=== PATIENT | male | born 1980 | race Caucasian/White ===

== ENCOUNTER 2018-10-31 07:18 | Inpatient (IN) | payer OTHER ==
[2018-10-31] MEDS ORDERED: NACL 0.9% 3 ML SYG IV ×2 (09:30→14:30)
[2018-10-31] MEDS ORDERED: LORAZEPAM 2 MG INJ IV ×4 (09:30→15:30)
[2018-10-31] MEDS: ACETAMINOPHEN 325 MG TAB PO (09:43)
[2018-10-31] MEDS: ONDANSETRON 4 MG INJ IV ×2 (09:47→16:03)
[2018-10-31] MEDS ORDERED: ACETAMINOPHEN 325 MG TAB PO ×2 (14:30→20:30)
[2018-10-31 14:44] LABS: ADD MAN DIFF? NO
[2018-10-31 14:46] LABS: ABNORMAL IP MESSAGE 1; BASOPHILS % 1.1 % (0.0-2.0); EOSINOPHILS # 0.2 10^3/ul (0.0-0.5); EOSINOPHILS % 4.9 % (0.0-7.0); HEMATOCRIT 39.9 % (42.0-52.0); HEMOGLOBIN 13.8 g/dl (14.0-18.0); LYMPHOCYTES # 0.8 10^3/ul (0.8-2.9); MEAN CORPUSCULAR HEMOGLOBIN 30.9 pg (29.0-33.0); MEAN CORPUSCULAR HGB CONC 34.6 g/dl (32.0-37.0); MEAN CORPUSCULAR VOLUME 89.3 fl (82.0-101.0); MEAN PLATELET VOLUME 10.4 fl (7.4-10.4); MONOCYTE # 0.4 10^3/ul (0.3-0.9); MONOCYTES % 9.4 % (0.0-11.0); NEUTROPHIL # 2.4 10^3/ul (1.6-7.5); NEUTROPHILS % 63.3 % (39.0-77.0); PLATELET COUNT 74 10^3/UL (140-415); POSITIVE DIFF @See below; RED BLOOD COUNT 4.47 10^6/ul (4.70-6.10); RED CELL DISTRIBUTION WIDTH 17.4 % (11.5-14.5)
[2018-10-31 14:46] LABS: WHITE BLOOD COUNT 3.7 10^3/ul (4.8-10.8)
[2018-10-31] MEDS: DULOXETINE 30 MG CAP DR PO (15:13)
[2018-10-31] MEDS: SOD CHLORIDE 0.9% 1,000 ML IV ×2 (15:13→20:12)
[2018-10-31 15:19] LABS: ALANINE AMINOTRANSFERASE 43 IU/L (13-69); ALBUMIN 3.3 g/dl (3.3-4.9); ALBUMIN/GLOBULIN RATIO 1.26; ALKALINE PHOSPHATASE 62 IU/L (42-121); ANION GAP 6 (5-13); ASPARTATE AMINO TRANSFERASE 38 IU/L (15-46); BILIRUBIN,INDIRECT 1.7 mg/dl (0-1.1); BILIRUBIN,TOTAL 1.7 mg/dl (0.2-1.3); BLOOD UREA NITROGEN 8 mg/dl (7-20); CALCIUM 8.4 mg/dl (8.4-10.2); CARBON DIOXIDE 26 mmol/L (21-31); CHLORIDE 108 mmol/L (97-110); CREATININE 1.14 mg/dl (0.61-1.24); Estimated GFR > 60 mL/min (>60); GLUCOSE 78 mg/dl (70-220); LIPASE 288 U/L (23-300); POTASSIUM 4.3 mmol/L (3.5-5.1); SODIUM 140 mmol/L (135-144); TOTAL PROTEIN 5.9 g/dl (6.1-8.1)
[2018-10-31] MEDS: SUCRALFATE (100 MG/ML) 10ML CUP PO ×2 (16:05→21:04)
[2018-10-31] MEDS: MULTIVITAMINS 10 ML, THIAMINE 100 MG, FOLIC ACID 1 MG, MAGNESIUM SULFATE 2 GM in SOD CH... IV (17:18)
[2018-10-31] MEDS: PANTOPRAZOLE 40 MG INJ IV (17:18)
[2018-10-31] MEDS: morphine 2 MG INJ IV ×2 (17:30→22:15)
[2018-10-31] MEDS: METOCLOPRAMIDE 10 MG INJ IV (18:37)
[2018-10-31] MEDS: PROPRANOLOL 20 MG TAB PO (21:03)
[2018-10-31] MEDS: CHLORDIAZEPOXIDE 25 MG CAP PO (21:04)
[2018-11-01] MEDS: METOCLOPRAMIDE 10 MG INJ IV ×3 (01:57→12:02)
[2018-11-01] MEDS: morphine 2 MG INJ IV ×5 (02:22→21:05)
[2018-11-01] MEDS ORDERED: PANTOPRAZOLE (EC) 40 MG TAB PO (06:00)
[2018-11-01 06:02] LABS: ADD MAN DIFF? NO
[2018-11-01 06:12] LABS: WHITE BLOOD COUNT 2.8 10^3/ul (4.8-10.8)
[2018-11-01 06:12] LABS: ABNORMAL IP MESSAGE 1; BASOPHILS % 0.7 % (0.0-2.0); EOSINOPHILS # 0.2 10^3/ul (0.0-0.5); EOSINOPHILS % 6.4 % (0.0-7.0); HEMATOCRIT 40.5 % (42.0-52.0); HEMOGLOBIN 13.6 g/dl (14.0-18.0); LYMPHOCYTES # 0.7 10^3/ul (0.8-2.9); LYMPHOCYTES % 23.2 % (15.0-51.0); MEAN CORPUSCULAR HEMOGLOBIN 30.5 pg (29.0-33.0); MEAN CORPUSCULAR HGB CONC 33.6 g/dl (32.0-37.0); MEAN CORPUSCULAR VOLUME 90.8 fl (82.0-101.0); MEAN PLATELET VOLUME 10.9 fl (7.4-10.4); MONOCYTE # 0.2 10^3/ul (0.3-0.9); MONOCYTES % 8.6 % (0.0-11.0); NEUTROPHIL # 1.7 10^3/ul (1.6-7.5); NEUTROPHILS % 60.4 % (39.0-77.0); PLATELET COUNT 64 10^3/UL (140-415); POSITIVE DIFF @See below; RED BLOOD COUNT 4.46 10^6/ul (4.70-6.10); RED CELL DISTRIBUTION WIDTH 17.3 % (11.5-14.5)
[2018-11-01] MEDS: PANTOPRAZOLE 40 MG INJ IV ×2 (06:14→17:15)
[2018-11-01] MEDS: SOD CHLORIDE 0.9% 1,000 ML IV ×3 (06:15→22:13)
[2018-11-01 06:41] LABS: AMMONIA 19 umol/l (9-30)
[2018-11-01 06:51] LABS: ALANINE AMINOTRANSFERASE 37 IU/L (13-69); ALBUMIN 2.8 g/dl (3.3-4.9); ALBUMIN/GLOBULIN RATIO 1.07; ALKALINE PHOSPHATASE 61 IU/L (42-121); ANION GAP 4 (5-13); ASPARTATE AMINO TRANSFERASE 33 IU/L (15-46); BILIRUBIN,INDIRECT 1.8 mg/dl (0-1.1); BILIRUBIN,TOTAL 1.8 mg/dl (0.2-1.3); BLOOD UREA NITROGEN 9 mg/dl (7-20); CALCIUM 7.8 mg/dl (8.4-10.2); CARBON DIOXIDE 28 mmol/L (21-31); CHLORIDE 109 mmol/L (97-110); CREATININE 1.09 mg/dl (0.61-1.24); Estimated GFR > 60 mL/min (>60); GLUCOSE 78 mg/dl (70-220); PHOSPHORUS 3.7 mg/dl (2.5-4.9); POTASSIUM 4.8 mmol/L (3.5-5.1); SODIUM 141 mmol/L (135-144); TOTAL PROTEIN 5.4 g/dl (6.1-8.1)
[2018-11-01] MEDS: DULOXETINE 30 MG CAP DR PO (09:08)
[2018-11-01] MEDS: SPIRONOLACTONE 25 MG TAB PO (09:08)
[2018-11-01] MEDS: PROPRANOLOL 20 MG TAB PO ×2 (09:08→21:00)
[2018-11-01] MEDS: SUCRALFATE (100 MG/ML) 10ML CUP PO ×4 (09:08→21:01)
[2018-11-01] MEDS: CHLORDIAZEPOXIDE 25 MG CAP PO ×3 (09:09→21:00)
[2018-11-01] MEDS: MULTIVITAMINS 10 ML, THIAMINE 100 MG, FOLIC ACID 1 MG in SOD CHLORIDE 0.9% 1,000 ML IVPB (09:15)
[2018-11-01 12:26] LABS: ALANINE AMINOTRANSFERASE 43 IU/L (13-69); ALBUMIN/GLOBULIN RATIO 1.03; ALKALINE PHOSPHATASE 61 IU/L (42-121); ANION GAP 4 (5-13); ASPARTATE AMINO TRANSFERASE 37 IU/L (15-46); BILIRUBIN,INDIRECT 1.9 mg/dl (0-1.1); BILIRUBIN,TOTAL 1.9 mg/dl (0.2-1.3); BLOOD UREA NITROGEN 9 mg/dl (7-20); CALCIUM 7.8 mg/dl (8.4-10.2); CARBON DIOXIDE 27 mmol/L (21-31); CHLORIDE 108 mmol/L (97-110); CREATININE 1.04 mg/dl (0.61-1.24); Estimated GFR > 60 mL/min (>60); GLUCOSE 73 mg/dl (70-220); POTASSIUM 4.5 mmol/L (3.5-5.1); SODIUM 139 mmol/L (135-144); TOTAL PROTEIN 5.9 g/dl (6.1-8.1)
[2018-11-01 12:32] LABS: INR 1.58; PT RATIO 1.5
[2018-11-01 14:37] LABS: HEPATITIS B SURFACE ANTIGEN NEGATIVE (NEGATIVE)
[2018-11-01 14:55] LABS: HEPATITIS B CORE ANTIBODY NEGATIVE (NEGATIVE); HEPATITIS C VIRAL ANTIBODY NEGATIVE (NEGATIVE)
[2018-11-02] MEDS: SOD CHLORIDE 0.9% 1,000 ML IV (00:03)
[2018-11-02] MEDS: morphine 2 MG INJ IV ×5 (03:29→21:29)
[2018-11-02] MEDS: PANTOPRAZOLE 40 MG INJ IV ×2 (05:44→17:58)
[2018-11-02] MEDS: DULOXETINE 30 MG CAP DR PO (08:19)
[2018-11-02] MEDS: CHLORDIAZEPOXIDE 25 MG CAP PO ×4 (08:20→21:31)
[2018-11-02] MEDS: SUCRALFATE (100 MG/ML) 10ML CUP PO ×4 (08:20→21:31)
[2018-11-02] MEDS: SPIRONOLACTONE 25 MG TAB PO (08:31)
[2018-11-02] MEDS: MULTIVITAMINS 10 ML, THIAMINE 100 MG, FOLIC ACID 1 MG in SOD CHLORIDE 0.9% 1,000 ML IVPB (08:33)
[2018-11-02] MEDS: PROPRANOLOL 20 MG TAB PO ×2 (09:00→21:31)
[2018-11-02] MEDS: ONDANSETRON 4 MG INJ IV (18:06)
[2018-11-02] MEDS: HYOSCYAMINE 0.125 MG SUBL TAB PO ×2 (19:04→21:36)
[2018-11-03] MEDS: morphine 2 MG INJ IV ×3 (01:34→13:00)
[2018-11-03] MEDS: HYOSCYAMINE 0.125 MG SUBL TAB PO ×2 (05:45→13:00)
[2018-11-03] MEDS: SUCRALFATE (100 MG/ML) 10ML CUP PO ×2 (08:39→12:12)
[2018-11-03] MEDS: DULOXETINE 30 MG CAP DR PO (08:39)
[2018-11-03] MEDS: PANTOPRAZOLE (EC) 40 MG TAB PO (08:39)
[2018-11-03] MEDS: CHLORDIAZEPOXIDE 25 MG CAP PO ×2 (08:39→12:12)
[2018-11-03] MEDS: SPIRONOLACTONE 25 MG TAB PO (08:40)
[2018-11-03] MEDS: PROPRANOLOL 20 MG TAB PO (08:40)
[2018-11-03] MEDS: MULTIVITAMINS 10 ML, THIAMINE 100 MG, FOLIC ACID 1 MG in SOD CHLORIDE 0.9% 1,000 ML IVPB (08:58)
== END 2018-11-03 15:05 | disposition home or self-care (01) | DRG 897 ==
LOC: PP2 07:18
DX: F10.121 Alcohol abuse with intoxication delirium (principal); D61.818 Other pancytopenia; K76.6 Portal hypertension; I85.10 Secondary esophageal varices without bleeding; K70.30 Alcoholic cirrhosis of liver without ascites; Z59.0 Homelessness; K80.20 Calculus of gallbladder without cholecystitis without obstruction; E80.6 Other disorders of bilirubin metabolism; F32.9 Major depressive disorder, single episode, unspecified; R16.1 Splenomegaly, not elsewhere classified; Z72.0 Tobacco use
CPT/HCPCS: 74181; 80053; 82140; 83690; 83735; 84100; 85025; 85610; 86704; 86803; 87081; 87340